=== PATIENT | female | born 1970 | race Hispanic/Latino ===

== ENCOUNTER 2016-11-03 17:08 | Emergency (ER) | payer MEDICAID ==
[2016-11-03 17:30] VITALS: BP 119/68
[2016-11-03] MEDS ORDERED: PEPCID PO ONE (18:09)
--- NOTE | 2016-11-03 18:35 | Emergency Department Report ---
Entered by MAXINE SHOOK, acting as scribe for JONO ROJAS PA. HPI - General Chief Complaint: Allergic Reaction - HPI HPI: 45 year old with no significant PMHx presents to the ED c/o of an allergic reaction that began this afternoon. Patient states she was eating a chicken sandwich at [employer] and subsequently her face began to swell. Reports taking diet pills this morning and after eating. Associated symptoms include facial, head, and ear itching, but she denies nausea, vomiting, SOB, difficulty breathing, and tightness in her throat. Notes taking 2 tablet of 25mg Benadryl [employer]. Uses tobacco products daily. Allergic to acetamiophen and propoxyphene. ED Past Medical Hx - Past Medical History Previous Medical History?: No - Surgical History Past Surgical History?: Yes Additional Surgical History: back - Social History Smoking Status: Current Every Day Smoker Substance Use Type: None - Medications Home Medications: Home Medications Medication Instructions Recorded Confirmed Last Taken Type Amoxicillin/K Clav Tab [Augmentin 1 each PO Q8HR #30 tablet 11/18/13 Unknown Rx 500 mg] HYDROcodone/APAP 5-325 [Corry 1 each PO Q6HR PRN #14 tablet 11/18/13 Unknown Rx 5-325 mg TAB] Ibuprofen [Motrin] 800 mg PO Q8H PRN #20 tablet 11/18/13 Unknown Rx EPINEPHrine [Epipen 2-Noé] 0.3 mg IJ PRN PRN #1 auto.injct 11/03/16 Unknown Rx Prednisone [predniSONE 5 mg (6-Day 5 mg PO .TAPER #1 tab.ds.pk 11/03/16 Unknown Rx Pack, 21 Tabs)] diphenhydrAMINE [Benadryl CAP] 25 mg PO QHS PRN #20 capsule 11/03/16 Unknown Rx ED Review of Systems ROS: Stated complaint: ALLERGIC REACTION Other details as noted in HPI Comment: All other systems reviewed and negative Constitutional: denies: chills, fever, other (tingling) ENT: denies: throat pain, other (tightness in throat) Respiratory: denies: cough, orthopnea, shortness of breath, SOB with exertion, SOB at rest, stridor, other (difficulty breathing) Cardiovascular: denies: chest pain, dyspnea on exertion, orthopnea Gastrointestinal: denies: nausea, vomiting Skin: other (facial, head, and ear itching). denies: rash Neurological: denies: headache, numbness Physical Exam - Physical Exam Vital Signs: Vital Signs 11/03/16 17:26 Temperature 98.0 F Pulse Rate 108 H Respiratory 18 Rate Blood Pressure 119/68 O2 Sat by Pulse 99 Oximetry General: General: Patient is alert and oriented x 3. No apparent distress, normal gait, atraumatic. Physical Exam: HEAD: Head is normocephalic and atraumatic. Facial swelling present. EYES: Extraocular movements are intact. Pupils are equal, round, and reactive to light and accommodation. EARS: Symmetrical, atraumatic, non tender, ear canal clear with moderate cerumen , tympanic membrane non inflamed. NOSE: Nose symmetrical, nontender. Nares appeared normal. MOUTH:Mouth is well hydrated and without lesions. Mucous membranes are moist. Uvula midline. Tongue not elevated. Tonsils are not erythematous or swollen. Patent airway. NECK: Supple. Non edematous, no carotid bruits. No lymphadenopathy. LUNGS: Symmetrical with respiration. No wheezing, rales or crackles, CTAB. HEART: Regular rate and rhythm with normal S1/S2 present. No murmurs, rubs, or gallops. ABDOMEN: Soft, nondistended. Nontender to palpation on all quadrants. EXTREMITIES/MUSCULOSKELETAL: No cyanosis, clubbing, rash, lesions or edema. SKIN: Warm and dry. No lesions, ulceration or induration present. Facial swelling present. NEUROLOGIC: No focal deficit. PSYCHIATRIC: Mood is congruent with affect. ED Course Vital Signs 11/03/16 17:26 Temperature 98.0 F Pulse Rate 108 H Respiratory 18 Rate Blood Pressure 119/68 O2 Sat by Pulse 99 Oximetry ED Medical Decision Making - Medical Decision Making 45-year-old female presents with an allergic reaction. In the ED, patient will be given Pepcid and Prednisolone. She is instructed to apply heat and ice to reduce facial swelling and continue taking Benadryl if she began to experience itching. Patient states understanding and will follow instructions. Vital signs stable, patient is in no acute distress. Discussed with patient to follow up with PCP to discuss allergy to diet pills. Patient is encouraged to return to the ED if her symptoms worsen or she began to have SOB/throat closing. Critical care attestation.: If time is entered above; I have spent that time in minutes in the direct care of this critically ill patient, excluding procedure time. ED Disposition Clinical Impression: Allergic reaction Qualifiers: Encounter type: initial encounter Qualified Code(s): T78.40XA - Allergy, unspecified, initial encounter Allergic reaction caused by a drug Qualifiers: Encounter type: initial encounter Qualified Code(s): T78.40XA - Allergy, unspecified, initial encounter Disposition: DISCHARGED TO HOME OR SELFCARE Is pt being admited?: No Does the pt Need Aspirin: No Condition: Stable Instructions: Urticaria (ED), Food Allergy (ED) Additional Instructions: take medication as prescribed. Return to ED if worsening or new symptoms arise. Prescriptions: diphenhydrAMINE [Benadryl CAP] 25 mg PO QHS PRN #20 capsule PRN Reason: Allergic Reaction EPINEPHrine [Epipen 2-Noé] 0.3 mg IJ PRN PRN #1 auto.injct PRN Reason: Anaphylaxis Prednisone [predniSONE 5 mg (6-Day Pack, 21 Tabs)] 5 mg PO .TAPER #1 tab.ds.pk Referrals: PRIMARY CARE, [Primary Care Provider] - 3-5 Days ZANA CORREA MD [Referring] - 3-5 Days [facility] [Outside] - 3-5 Days [facility] [Outside] - 3-5 Days [facility] [Outside] - 3-5 Days Forms: Accompanied Note, Work/School Release Form(ED) Time of Disposition: 18:30 This documentation as recorded by the BOUCHRA awan JASMINE,accurately reflects the service I personally performed and the decisions made by ,JONO ROJAS PA.
== END 2016-11-03 18:41 | disposition home or self-care (01) ==
LOC: ED 17:08
DX: T78.40XA Allergy, unspecified, initial encounter (principal); F17.200 Nicotine dependence, unspecified, uncomplicated; Y92.9 Unspecified place or not applicable
CPT/HCPCS: 96372; 99282; J2930